=== PATIENT | female | born 1980 | race Hispanic/Latino ===

== ENCOUNTER 2022-01-17 22:51 | Emergency (ER) | payer OTHER, MEDICAID, SELFPAY ==
[2022-01-17 22:56] VITALS: BP 102/62; PULSE 63; RESP 14; TEMP 36.8; O2SAT 100; BMI 23.8
--- NOTE | 2022-01-17 23:04 | ED_ITS ---
HPI - Syncope General Chief Complaint: Dizziness Stated Complaint: Near Syncope Time Seen by Provider: 01/17/22 23:03 Source: patient and EMS Mode of arrival: EMS Limitations: no limitations History of Present Illness HPI narrative: 41-year-old female nonsmoker with noncontributory medical history presents by EMS with a family member for evaluation of a near syncopal episode just prior to arrival. She states that she had largely been in her normal state of health but admits to have eaten very little today and had a few glasses of wine, [place] and she started to feel hot and a bit lightheaded, she was able to sit down but states she feels like she nearly passed out. She denies any headache, blurred vision or trouble with speech. She denies any chest pain or shortness of breath. She is had no recent dietary or medication changes. She denies vomiting or diarrhea. She admits that she feels much better now. Review of Systems Review of Systems Narrative: GENERAL: See HPI HEENT: Denies sinus pain, ear pain, sore throat, difficulty swallowing, dizziness. RESPIRATORY: Denies dyspnea, cough, wheezing, hemoptysis, sputum. CARDIOVASCULAR: See HPI GASTROINTESTINAL: Denies nausea, vomiting, abdominal pain, diarrhea, constipation, melena. : Denies dysuria, frequency, incontinence, hematuria, urinary retention. MUSCULOSKELETAL: denies weakness, joint pain, or bony pain SKIN: Denies rash, skin lesions, or other NEUROLOGIC: See HPI PSYCHIATRIC: No concerning psychosocial issues. 12 point review of systems is negative except for those stated above Patient History alcohol intake frequency: holidays/special occasions only Alcohol type: wine Substance Use Type: does not use Exam Narrative Exam Narrative: GENERAL: [41] year old patient appears stated age. Well-developed patient, in mild distress. HEAD: Atraumatic. Normocephalic. EYES: Pupils equal round and reactive. Extraocular motions intact. No scleral icterus. No injection or drainage. ENT: Nose without bleeding, purulent drainage. Throat without erythema, tonsillar hypertrophy or exudate. Airway patent. NECK: Trachea midline. Non tender CARDIOVASCULAR: Regular rate and rhythm without murmurs, gallops, or rubs. RESPIRATORY: Clear to auscultation. Breath sounds equal bilaterally. No wheezes, rales, or rhonchi. GASTROINTESTINAL: Abdomen soft, non-tender, nondistended. EXTREMITIES: No edema or joint tenderness. BACK: Nontender without deformity or crepitance. No flank tenderness. NEURO: AOx3. SKIN: No rash or erythema of visible areas Initial Vital Signs Initial Vital Signs: Vital Signs Temperature 98.2 F 01/17/22 22:56 Pulse Rate 63 01/17/22 22:56 Respiratory Rate 14 01/17/22 22:56 Blood Pressure 102/62 01/17/22 22:56 Pulse Oximetry 100 01/17/22 22:56 Oxygen Delivery Method 01/17/22 22:56 Course Orders Ordered: ED Orders 01/17/22 23:04 EKG-12 Lead Stat 01/17/22 23:05 XR chest 1V Stat Complete Blood Count AUTO DIFF Stat Comprehensive Metabolic Panel Stat Ethanol (ETOH) Stat Procalcitonin Stat Troponin I Stat Discontinued Medications Sodium Chloride (Normal Saline 0.9%) 1,000 mls @ 1,000 mls/hr IV BOLUS ONE Stop: 01/18/22 00:03 Last Infusion: 01/18/22 00:12 Dose: 0 mls/hr Documented By: Admin: 01/17/22 23:09 Dose: 1,000 mls/hr Documented By: CANDIS Potassium Chloride (Potassium Chloride 20 Meq/15 Ml Udc) 40 meq PO NOW ONE Stop: 01/17/22 23:33 Last Admin: 01/18/22 00:04 Dose: 40 meq Documented By: CARLOTA Vital Signs Vital signs: Vital Signs - 8 hr 01/17/22 22:56 01/18/22 00:13 01/18/22 00:50 Temperature 98.2 F Pulse Rate 63 67 Pulse Rate [Orthostatic Lying] 74 Pulse Rate [Orthostatic Sitting] 78 Pulse Rate [Orthostatic Standing] 75 Respiratory Rate 14 16 Blood Pressure 102/62 115/75 Blood Pressure [Orthostatic Lying] 107/62 Blood Pressure [Orthostatic Sitting] 116/68 Blood Pressure [Orthostatic Standing] 122/68 Pulse Oximetry 100 100 Oxygen Delivery Method Room Air Room Air MDM - Syncope Lab Data Result diagrams: 01/17/22 23:05 01/17/22 23:05 Labs: Lab Results 01/17/22 01/17/22 Range/Units 23:05 23:05 WBC 6.0 (4.5-11.0) X10^3/uL RBC 5.19 (4.0-5.2) X10^6/uL Hgb 14.7 (12.0-16.0) g/dL Hct 43.1 (36-46) % MCV 83.1 (80-100) fL MCH 28.3 (26-34) PG MCHC 34.0 (30-36) % RDW 12.6 (11.6-14.8) % Plt Count 221 (150-400) X10^3/uL Neut % (Auto) 47.2 L (50-75) % Lymph % (Auto) 41.9 H (25-40) % [place] % (Auto) 5.7 (3-14) % Eos % (Auto) 2.6 (2-4) % Baso % (Auto) 2.6 H (0-2) % Neut # (Auto) 2800 (9704-1668) /uL Lymph # (Auto) 2500 (9580-0442) /uL [place] # (Auto) 300 (0-900) /uL Eos # (Auto) 200 (0-450) /uL Baso # (Auto) 200 H (0-100) /uL Sodium 140 (137-145) mmol/L Potassium 3.1 L (3.4-5.1) mmol/L Chloride 104 (98-107) mmol/L Carbon Dioxide 22 (22-32) mmol/L BUN 11 (7-17) mg/dL Creatinine 0.58 (0.52-1.04) mg/dL Estimated GFR > 60 (>60) mL/min BUN/Creatinine Ratio 19.0 (6-22) Glucose 123 H (70-100) mg/dL Calcium 9.1 (8.4-10.2) mg/dL Total Bilirubin 0.2 (0.2-1.3) mg/dL AST 38 H (14-36) IU/L ALT 37 H (<35) IU/L Alkaline Phosphatase 50 (38-126) U/L Troponin I < 0.012 (0.01-0.034) ng/mL Total Protein 7.5 (6.3-8.2) g/dL Albumin 4.2 (3.5-5.0) g/dL Globulin 3.3 (1.7-4.1) g/dL Albumin/Globulin Ratio 1.3 (1.0-2.8) Procalcitonin 0.05 (<0.5) ng/mL Ethyl Alcohol < 10 ( - 10) mg/dL Discharge Plan Departure Patient Disposition: Home Clinical Impression: Near syncope, Acute hypokalemia Instructions: DI for Syncope in Adults (Fainting), DI for Hypokalemia Activity Restrictions/Additional Instructions: *You have been diagnosed with [near syncope and low potassium. Thankfully, as we discussed, your history and physical exam as well as other lab work, EKG and response to therapies is very reassuring and this is likely a consequence of having a long day, some mild dehydration and not eating quite as much as you normally would.] *What to do: *Please continue to take your regular medications as directed. *Please follow up with your primary care provider in 2-3 days, call for an marc ointment. Let them know you were seen in the Emergency Department and that we ask that you be seen in follow up. We will electronically transmit a record of today's note if your PCP is in our system *Return to Emergency Department if you should have any new, worsening or concerning symptoms, such as [fever greater than 101 F, shaking chills, worsening pain, persistent vomiting or other bothersome symptoms] Visit Report Forms: Patient Portal/API
--- NOTE | 2022-01-17 23:05 | DI.RAD.S_ITS ---
PROCEDURE: XR CHEST 1V INDICATIONS: weakness, near syncope TECHNIQUE: One view of the chest was acquired. COMPARISON: None. FINDINGS: Surgical changes and devices: None. Lungs and pleura: Lungs are clear. No pleural effusions or pneumothorax. Mediastinum: Mediastinal contours appear normal. Heart size is normal. Bones and chest wall: No suspicious bony lesions. Overlying soft tissues appear unremarkable. IMPRESSION: Normal for age, source of current weakness symptoms is not seen. Dictated by: Hans Landa M.D. on 01/17/2022 at 23:33 Approved by: Hans Landa M.D. on 01/17/2022 at 23:33
[2022-01-17] MEDS: SODIUM CHLORIDE 0.9% 1,000 ML 1000 ML IV (23:09)
[2022-01-17 23:18] LABS: Add Manual Diff / Slide Review NO; Basophils Absolute Auto 200 /uL (0-100); Basophils Percent Auto 2.6 % (0-2); Eosinophils Absolute Auto 200 /uL (0-450); Eosinophils Percent Auto 2.6 % (2-4); Hematocrit 43.1 % (36-46); Hemoglobin 14.7 g/dL (12.0-16.0); Lymphocytes Absolute Auto 2500 /uL (1100-4500); Lymphocytes Percent Auto 41.9 % (25-40); Mean Corpuscular Hemoglobin 28.3 PG (26-34); Mean Corpuscular Volume 83.1 fL (80-100); Monocytes Absolute Auto 300 /uL (0-900); Monocytes Percent Auto 5.7 % (3-14); Neutrophils Absolute Auto 2800 /uL (1500-7000); Neutrophils Percent Auto 47.2 % (50-75); Platelet Count 221 X10^3/uL (150-400); Red Blood Cell Count 5.19 X10^6/uL (4.0-5.2); Red Cell Distribution Width 12.6 % (11.6-14.8)
[2022-01-17 23:25] LABS: Alanine Aminotransferase 37 IU/L (<35); Albumin 4.2 g/dL (3.5-5.0); Albumin Globulin Ratio 1.3 (1.0-2.8); Alkaline Phosphatase 50 U/L (38-126); Aspartate Aminotransferase 38 IU/L (14-36); Bilirubin Total 0.2 mg/dL (0.2-1.3); Blood Urea Nitrogen 11 mg/dL (7-17); Calcium 9.1 mg/dL (8.4-10.2); Carbon Dioxide 22 mmol/L (22-32); Chloride 104 mmol/L (98-107); Estimated Glomerular Filt Rate > 60 mL/min (>60); Ethanol (ETOH) < 10 mg/dL; Globulin 3.3 g/dL (1.7-4.1); Glucose 123 mg/dL (70-100); HEMOLYSIS < 15 (0-50); Potassium 3.1 mmol/L (3.4-5.1); Sodium 140 mmol/L (137-145); Total Protein 7.5 g/dL (6.3-8.2)
[2022-01-17 23:36] LABS: Troponin I < 0.012 ng/mL (0.01-0.034)
[2022-01-17 23:41] LABS: Procalcitonin 0.05 ng/mL (<0.5)
[2022-01-18] MEDS: POTASSIUM CHLORIDE 20 MEQ/15 ML UDC 40 MEQ PO (00:04)
[2022-01-18 00:13] VITALS: BP 107/62; BP 116/68; BP 122/68; PULSE 74; PULSE 75; PULSE 78
--- NOTE | 2022-01-18 00:41 | PC.NURSE ---
Patient tolerating PO fluids well and reports dizziness and nausea has greatly improved.
[2022-01-18 00:50] VITALS: BP 115/75; PULSE 67; RESP 16; O2SAT 100
== END 2022-01-18 00:51 | disposition home or self-care (01) ==
PROVIDERS: Emergency Provider Emergency Medicine
DX: R55 Syncope and collapse (principal); E87.6 Hypokalemia
CPT/HCPCS: 36415; 71045; 80053; 80320; 84145; 84484; 85025; 93005; 96360; 99284